=== PATIENT | female | born 1970 | race Caucasian/White ===

== ENCOUNTER 2016-05-23 03:45 | Emergency (ER) | payer MEDICAID ==
[2016-05-23] MEDS ORDERED: SODIUM CHLORIDE 0.9% 2,000 ML ONE (03:58)
[2016-05-23] MEDS ORDERED: ONDANSETRON 4 MG VIAL ONE (03:58)
[2016-05-23] MEDS ORDERED: DILAUDID 1 MG/ML AMP ONE (04:23)
[2016-05-23] MEDS ORDERED: ONDANSETRON ODT 4 MG TAB ONE (06:11)
== END 2016-05-23 06:38 | disposition home or self-care (01) ==
LOC: ER 03:45
DX: K52.9 Noninfective gastroenteritis and colitis, unspecified (principal); S62.325A Displaced fracture of shaft of fourth metacarpal bone, left hand, initial encounter for closed fracture; S52.501A Unspecified fracture of the lower end of right radius, initial encounter for closed fracture; W19.XXXA Unspecified fall, initial encounter; J44.9 Chronic obstructive pulmonary disease, unspecified; Z79.51 Long term (current) use of inhaled steroids; G40.909 Epilepsy, unspecified, not intractable, without status epilepticus; Z86.14 Personal history of Methicillin resistant Staphylococcus aureus infection; E07.9 Disorder of thyroid, unspecified
CPT/HCPCS: 96361; 96374; 96375; 96376